=== PATIENT | male | born 1965 | race Caucasian/White ===

== ENCOUNTER 2020-03-22 08:15 | Inpatient (IN) ==
[2020-03-22] MEDS ORDERED: Aspirin 81 MG TAB.CHEW PO ONE (08:19)
[2020-03-22] MEDS ORDERED: Nitroglycerin 0.4 MG TAB.SUBL SL PRN ×2 (08:19→16:12)
[2020-03-22] MEDS ORDERED: Isovue-370 500 ML BOTTLE IVP ONE (08:20)
[2020-03-22 08:35] LABS: Basophils # 0.1 K/mcL (0.0-0.2); Basophils % 0.4 %; Eosinophils # 0.1 K/mcL (0.0-0.6); Eosinophils % 0.7 %; Hematocrit 35.3 % (37.5-50.1); Hemoglobin 10.5 g/dL (12.9-16.9); Immature Granulocytes % 1.1 % (0-4); Lymphocytes # 1.7 K/mcL (0.6-4.6); Lymphocytes % 13.6 %; Mean Corpuscular HGB Conc 29.7 g/dL (31.6-35.5); Mean Corpuscular Hemoglobin 26.7 pg (28.0-33.3); Mean Corpuscular Volume 89.8 fL (83.0-100.0); Mean Platelet Volume 9.2 fL (9.4-12.4); Monocytes # 0.4 K/mcL (0.0-1.3); Monocytes % 3.4 %; Neutrophils # 10.1 K/mcL (1.6-8.9); Platelet Count 537 K/mcL (140-400); Red Blood Count 3.93 M/mcL (4.19-5.50); Red Cell Distribution Width 14.6 % (11.5-14.5); Segmented Neutrophils % 80.8 %; White Blood Count 12.5 K/mcL (4.3-11.1)
[2020-03-22 08:40] LABS: Prothrombin Time 11.3 Seconds (9.4-12.1)
[2020-03-22 08:42] LABS: Activated Partial Thrombo Time 35.4 Seconds (26.0-36.0)
[2020-03-22] MEDS ORDERED: 0.9 % Sodium Chloride 1,000 ML IVC ONE (08:54)
[2020-03-22 08:59] LABS: Alanine Aminotransferase 11 Units/L (7-52); Albumin 3.9 g/dL (3.5-5.7); Albumin/Globulin Ratio 1.1 (1.1-2.2); Alkaline Phosphatase 107 Units/L (34-104); Aspartate Amino Transferase 12 Units/L (13-39); BUN/Creatinine Ratio 32 (6-26); Bilirubin,Direct 0.2 mg/dL (0.0-0.2); Bilirubin,Indirect 0.2 mg/dL (0.0-1.0); Bilirubin,Total 0.4 mg/dL (0.3-1.0); Blood Urea Nitrogen 57 mg/dL (6-20); Calcium 8.7 mg/dL (8.6-10.3); Carbon Dioxide 18 mEq/L (23-29); Chloride 102 mEq/L (98-107); Globulin 3.7 g/dL (2.4-3.5); Glucose 330 mg/dL (70-105); Lipase 74 Units/L (11-82); Osmolality,Calculated 307 (280-300); Potassium 4.8 mEq/L (3.5-5.1); Sodium 134 mEq/L (136-145); Total Protein 7.6 g/dL (6.4-8.9); Troponin I < 0.03 ng/mL (< 0.04); eGFR For African Americans 49 (> 60); eGFR For Non-African Americans 40 (> 60)
[2020-03-22] MEDS ORDERED: *HR* FentaNYL (PF) 100 MCG/2 ML VIAL IVP ONE (09:20)
[2020-03-22] MEDS ORDERED: Pantoprazole 40 MG VIAL IVP ONE (10:04)
[2020-03-22] MEDS ORDERED: MetroNIDAZOLE 500 MG/100 ML 500 MG/100 ML BAG IVPB ONE (10:04)
[2020-03-22] MEDS ORDERED: levoFLOXacin 750 MG/150 ML 750 MG/150 ML BAG IVPB ONE (10:05)
[2020-03-22 11:03] LABS: Bilirubin,Urine Negative (Negative); Blood,Urine Negative (Negative); Clarity,Urine Clear (Clear); Color,Urine Yellow (Yellow); Glucose,Urine (UA) Normal (Normal); Ketones,Urine Negative (Negative); Leukocyte Esterase,Urine Negative (Negative); Nitrite,Urine Negative (Negative); Protein,Urine Trace mg/dL (Neg-Trace); Specific Gravity,Urine 1.022 (1.010-1.025); Urobilinogen,Urine Normal (Normal)
[2020-03-22] MEDS ORDERED: Ondansetron 4 MG/2 ML VIAL IVP PRN ×2 (11:48→16:12)
[2020-03-22] MEDS ORDERED: *HR* Propofol 200 MG/20 ML VIAL IVP ONE (11:55)
[2020-03-22] MEDS ORDERED: *HR* Rocuronium Bromide 50 MG/5 ML VIAL ONE (11:56)
[2020-03-22] MEDS ORDERED: Dexamethasone 4 MG/ML VIAL ONE (11:56)
[2020-03-22] MEDS ORDERED: *HR* Midazolam HCl 2 MG/2 ML VIAL ONE (11:56)
[2020-03-22] MEDS ORDERED: Lidocaine -MPF 2% 2 ML VIAL ONE (11:56)
[2020-03-22] MEDS ORDERED: *HR* FentaNYL (PF) 100 MCG/2 ML VIAL ONE (11:56)
[2020-03-22] MEDS ORDERED: *HR* Succinylcholine 200 MG/10 ML VIAL IVP ONE (11:56)
[2020-03-22] MEDS ORDERED: Ondansetron 4 MG/2 ML VIAL ONE (11:56)
[2020-03-22] MEDS ORDERED: Ringers Solution, Lactated 1,000 ML IVC SCH (12:00)
[2020-03-22] MEDS ORDERED: Acetaminophen IV 1,000 MG/100 ML INFUS..BTL ONE (12:20)
[2020-03-22] MEDS ORDERED: Famotidine 20 MG/2 ML VIAL ONE (12:20)
[2020-03-22] MEDS ORDERED: *HR* PHENYLEPHRINE 1,000 MCG/10 ML SYRINGE IVP ONE (13:02)
[2020-03-22] MEDS ORDERED: *HR* HYDROMORPHONE 2 MG/ML VIAL ONE (13:24)
[2020-03-22] MEDS ORDERED: Fluconazole 200 MG/100 ML 200 MG/100 ML BAG IVPB SCH (14:45)
[2020-03-22] MEDS ORDERED: *HR* Dextrose 50 % in Water (Syg) 50 ML SYRINGE IVP PRN ×2 (15:59→16:12)
[2020-03-22] MEDS ORDERED: D5% in Water 1,000 ML IVC PRN ×2 (15:59→16:12)
[2020-03-22] MEDS ORDERED: Dextrose Gel 15 GM/37.5 ML TUBE PO PRN ×4 (15:59→16:12)
[2020-03-22] MEDS ORDERED: MetroNIDAZOLE 500 MG/100 ML 500 MG/100 ML BAG IVPB SCH (16:00)
[2020-03-22] MEDS: Pantoprazole 40 MG VIAL IVP SCH (16:52)
[2020-03-22] MEDS: MetroNIDAZOLE 500 MG/100 ML 500 MG/100 ML BAG IVPB SCH ×2 (16:53→22:53)
[2020-03-22] MEDS: Fluconazole 200 MG/100 ML 200 MG/100 ML BAG IVPB SCH (16:53)
[2020-03-22] MEDS: Ringers Solution, Lactated 1,000 ML IVC SCH (16:54)
[2020-03-22] MEDS: Insulin LISPRO 300 UNITS/3 ML VIAL SQ SCH ×2 (17:19→23:08)
[2020-03-22] MEDS ORDERED: Pantoprazole 40 MG VIAL IVP SCH (18:00)
[2020-03-22] MEDS ORDERED: Insulin LISPRO 300 UNITS/3 ML VIAL SQ SCH (18:00)
[2020-03-22 20:02] LABS: Hematocrit 31.4 % (37.5-50.1); Hemoglobin 9.4 g/dL (12.9-16.9)
[2020-03-22] MEDS: *HR* Heparin 5,000 UNIT/ML VIAL SQ SCH (22:53)
[2020-03-23] MEDS ORDERED: MetroNIDAZOLE 500 MG/100 ML 500 MG/100 ML BAG IVPB SCH
[2020-03-23 04:56] LABS: Hematocrit 31.2 % (37.5-50.1); Hemoglobin 9.2 g/dL (12.9-16.9); Mean Corpuscular HGB Conc 29.5 g/dL (31.6-35.5); Mean Corpuscular Hemoglobin 26.5 pg (28.0-33.3); Mean Corpuscular Volume 89.9 fL (83.0-100.0); Mean Platelet Volume 9.4 fL (9.4-12.4); Platelet Count 452 K/mcL (140-400); Red Blood Count 3.47 M/mcL (4.19-5.50); Red Cell Distribution Width 14.9 % (11.5-14.5); White Blood Count 14.8 K/mcL (4.3-11.1)
[2020-03-23 05:15] LABS: Calcium 8.3 mg/dL (8.6-10.3); Potassium 5.8 mEq/L (3.5-5.1)
[2020-03-23] MEDS: Ringers Solution, Lactated 1,000 ML IVC SCH (05:26)
[2020-03-23] MEDS: *HR* Heparin 5,000 UNIT/ML VIAL SQ SCH ×3 (05:27→22:35)
[2020-03-23] MEDS: Pantoprazole 40 MG VIAL IVP SCH ×2 (05:27→17:46)
[2020-03-23] MEDS: Insulin LISPRO 300 UNITS/3 ML VIAL SQ SCH ×4 (05:29→23:53)
[2020-03-23 05:38] LABS: Lymphocytes # 0.3 K/mcL (0.6-4.6); Monocytes # 0.6 K/mcL (0.0-1.3); Neutrophils # 13.9 K/mcL (1.6-8.9); Platelet Estimate Increased (Normal)
[2020-03-23 05:39] LABS: Toxic Granulation Present (Not Present)
[2020-03-23] MEDS: MetroNIDAZOLE 500 MG/100 ML 500 MG/100 ML BAG IVPB SCH ×3 (07:56→22:35)
[2020-03-23] MEDS: Fluconazole 200 MG/100 ML 200 MG/100 ML BAG IVPB SCH (07:57)
[2020-03-23] MEDS: levoFLOXacin 750 MG/150 ML 750 MG/150 ML BAG IVPB SCH (07:58)
[2020-03-23] MEDS ORDERED: levoFLOXacin 750 MG/150 ML 750 MG/150 ML BAG IVPB SCH ×2 (09:00)
[2020-03-23] MEDS ORDERED: Fluconazole 200 MG/100 ML 200 MG/100 ML BAG IVPB SCH (09:00)
[2020-03-23] MEDS ORDERED: Insulin LISPRO 300 UNITS/3 ML VIAL SQ ONE (09:02)
[2020-03-23] MEDS ORDERED: Albuterol 2.5 MG/3 ML NEBULIZER IH ONE (09:02)
[2020-03-23] MEDS ORDERED: 0.9 % Sodium Chloride 1,000 ML IVC SCH (11:30)
[2020-03-24] MEDS: Insulin LISPRO 300 UNITS/3 ML VIAL SQ SCH ×3 (06:01→18:20)
[2020-03-24] MEDS: Pantoprazole 40 MG VIAL IVP SCH ×2 (06:01→18:14)
[2020-03-24] MEDS: *HR* Heparin 5,000 UNIT/ML VIAL SQ SCH ×3 (06:01→21:40)
[2020-03-24 06:57] LABS: Basophils % 0.3 %; Eosinophils % 0.1 %; Hematocrit 29.6 % (37.5-50.1); Hemoglobin 8.9 g/dL (12.9-16.9); Immature Granulocytes % 1.6 % (0-4); Lymphocytes # 0.8 K/mcL (0.6-4.6); Mean Corpuscular HGB Conc 30.1 g/dL (31.6-35.5); Mean Corpuscular Hemoglobin 26.5 pg (28.0-33.3); Mean Corpuscular Volume 88.1 fL (83.0-100.0); Mean Platelet Volume 9.2 fL (9.4-12.4); Monocytes # 0.7 K/mcL (0.0-1.3); Monocytes % 4.4 %; Platelet Count 435 K/mcL (140-400); Red Blood Count 3.36 M/mcL (4.19-5.50); Red Cell Distribution Width 15.2 % (11.5-14.5); Segmented Neutrophils % 88.6 %; White Blood Count 15.8 K/mcL (4.3-11.1)
[2020-03-24 07:09] LABS: BUN/Creatinine Ratio 24 (6-26); Blood Urea Nitrogen 36 mg/dL (6-20); Calcium 8.9 mg/dL (8.6-10.3); Carbon Dioxide 22 mEq/L (23-29); Chloride 112 mEq/L (98-107); Glucose 250 mg/dL (70-105); Magnesium 1.9 mg/dL (1.6-2.6); Osmolality,Calculated 309 (280-300); Phosphorous 2.2 mg/dL (2.7-4.5); Potassium 5.2 mEq/L (3.5-5.1); Sodium 141 mEq/L (136-145); eGFR For African Americans > 60 (> 60); eGFR For Non-African Americans 50 (> 60)
[2020-03-24] MEDS: MetroNIDAZOLE 500 MG/100 ML 500 MG/100 ML BAG IVPB SCH ×2 (10:27→18:14)
[2020-03-24] MEDS: Fluconazole 200 MG/100 ML 200 MG/100 ML BAG IVPB SCH (10:28)
[2020-03-24] MEDS: levoFLOXacin 750 MG/150 ML 750 MG/150 ML BAG IVPB SCH (10:29)
[2020-03-24] MEDS ORDERED: Insulin DETEMIR 100 UNIT/ML X5UNITS SQ SCH (21:00)
[2020-03-25] MEDS: Insulin LISPRO 300 UNITS/3 ML VIAL SQ SCH ×7 (01:00→23:55)
[2020-03-25] MEDS: MetroNIDAZOLE 500 MG/100 ML 500 MG/100 ML BAG IVPB SCH ×4 (01:01→23:54)
[2020-03-25] MEDS ORDERED: Chloraseptic Spray 177 ML BOTTLE MM PRN (01:43)
[2020-03-25 02:36] LABS: Basophils # 0.1 K/mcL (0.0-0.2); Basophils % 0.4 %; Eosinophils # 0.2 K/mcL (0.0-0.6); Eosinophils % 1.1 %; Hematocrit 29.2 % (37.5-50.1); Hemoglobin 8.7 g/dL (12.9-16.9); Immature Granulocytes % 2.4 % (0-4); Lymphocytes # 1.3 K/mcL (0.6-4.6); Lymphocytes % 8.1 %; Mean Corpuscular HGB Conc 29.8 g/dL (31.6-35.5); Mean Corpuscular Hemoglobin 26.6 pg (28.0-33.3); Mean Corpuscular Volume 89.3 fL (83.0-100.0); Mean Platelet Volume 9.9 fL (9.4-12.4); Monocytes # 0.7 K/mcL (0.0-1.3); Monocytes % 4.3 %; Neutrophils # 13.3 K/mcL (1.6-8.9); Nucleated Red Blood Cells 0.1 /100 WBC (0); Platelet Count 422 K/mcL (140-400); Red Blood Count 3.27 M/mcL (4.19-5.50); Segmented Neutrophils % 83.7 %; White Blood Count 15.9 K/mcL (4.3-11.1)
[2020-03-25 02:40] LABS: BUN/Creatinine Ratio 26 (6-26); Blood Urea Nitrogen 37 mg/dL (6-20); Calcium 8.7 mg/dL (8.6-10.3); Carbon Dioxide 21 mEq/L (23-29); Chloride 113 mEq/L (98-107); Glucose 266 mg/dL (70-105); Magnesium 1.9 mg/dL (1.6-2.6); Osmolality,Calculated 318 (280-300); Phosphorous 2.8 mg/dL (2.7-4.5); Potassium 4.9 mEq/L (3.5-5.1); Sodium 145 mEq/L (136-145); eGFR For African Americans > 60 (> 60); eGFR For Non-African Americans 52 (> 60)
[2020-03-25] MEDS: *HR* Heparin 5,000 UNIT/ML VIAL SQ SCH ×3 (05:42→21:34)
[2020-03-25] MEDS: Pantoprazole 40 MG VIAL IVP SCH ×2 (05:42→18:24)
[2020-03-25] MEDS ORDERED: Insulin DETEMIR 100 UNIT/ML X5UNITS SQ SCH ×2 (09:00→21:00)
[2020-03-25] MEDS: levoFLOXacin 750 MG/150 ML 750 MG/150 ML BAG IVPB SCH (10:51)
[2020-03-25] MEDS: Fluconazole 200 MG/100 ML 200 MG/100 ML BAG IVPB SCH (10:54)
[2020-03-25] MEDS: Fluconazole 400 MG/200 ML 400 MG/200 ML BAG IVPB SCH (11:23)
[2020-03-25] MEDS ORDERED: Vancomycin 2,000 MG/520 ML IV.SOLN IVPB ONE (13:14)
[2020-03-25] MEDS: Acetaminophen IV 1,000 MG/100 ML INFUS..BTL IVPB SCH ×3 (14:37→23:55)
[2020-03-25 18:29] LABS: Bilirubin,Urine Negative (Negative); Clarity,Urine Clear (Clear); Color,Urine Yellow (Yellow); Ketones,Urine Negative (Negative)
[2020-03-25 18:30] LABS: Blood,Urine Negative (Negative); Glucose,Urine (UA) >=1000 mg/dL (Normal); Leukocyte Esterase,Urine Negative (Negative); Nitrite,Urine Negative (Negative); Protein,Urine Negative (Neg-Trace); Urobilinogen,Urine Normal (Normal)
[2020-03-25] MEDS: Insulin DETEMIR 100 UNIT/ML X5UNITS SQ SCH (21:34)
[2020-03-26] MEDS: Vancomycin 2,000 MG/520 ML IV.SOLN IVPB SCH (03:33)
[2020-03-26] MEDS: Acetaminophen IV 1,000 MG/100 ML INFUS..BTL IVPB SCH ×4 (05:59→23:16)
[2020-03-26] MEDS: Pantoprazole 40 MG VIAL IVP SCH ×2 (05:59→17:22)
[2020-03-26] MEDS: *HR* Heparin 5,000 UNIT/ML VIAL SQ SCH ×3 (05:59→21:25)
[2020-03-26] MEDS: Insulin LISPRO 300 UNITS/3 ML VIAL SQ SCH ×6 (06:00→16:54)
[2020-03-26 06:47] LABS: Hematocrit 28.5 % (37.5-50.1); Hemoglobin 8.8 g/dL (12.9-16.9); Mean Corpuscular HGB Conc 30.9 g/dL (31.6-35.5); Mean Corpuscular Hemoglobin 26.2 pg (28.0-33.3); Mean Corpuscular Volume 84.8 fL (83.0-100.0); Mean Platelet Volume 9.3 fL (9.4-12.4); Nucleated Red Blood Cells 0.2 /100 WBC (0); Platelet Count 397 K/mcL (140-400); Red Blood Count 3.36 M/mcL (4.19-5.50); Red Cell Distribution Width 15.1 % (11.5-14.5); White Blood Count 11.6 K/mcL (4.3-11.1)
[2020-03-26 07:05] LABS: % Iron Saturation 25 % (20-55); BUN/Creatinine Ratio 27 (6-26); Blood Urea Nitrogen 35 mg/dL (6-20); Calcium 8.2 mg/dL (8.6-10.3); Carbon Dioxide 22 mEq/L (23-29); Chloride 109 mEq/L (98-107); Glucose 244 mg/dL (70-105); Iron 47 mcg/dL (65-175); Magnesium 1.6 mg/dL (1.6-2.6); Osmolality,Calculated 306 (280-300); Phosphorous 3.2 mg/dL (2.7-4.5); Potassium 4.2 mEq/L (3.5-5.1); Sodium 140 mEq/L (136-145); Transferrin 132 mg/dL (203-362); eGFR For African Americans > 60 (> 60); eGFR For Non-African Americans 58 (> 60)
[2020-03-26] MEDS: Fluconazole 400 MG/200 ML 400 MG/200 ML BAG IVPB SCH (08:24)
[2020-03-26] MEDS: MetroNIDAZOLE 500 MG/100 ML 500 MG/100 ML BAG IVPB SCH ×3 (08:25→23:40)
[2020-03-26] MEDS: Insulin DETEMIR 100 UNIT/ML X5UNITS SQ SCH ×2 (08:26→21:25)
[2020-03-26 08:29] LABS: Estimated Average Glucose 183 mg/dl
[2020-03-26 09:10] LABS: Eosinophils # 0.8 K/mcL (0.0-0.6); Lymphocytes # 2.1 K/mcL (0.6-4.6); Monocytes # 0.5 K/mcL (0.0-1.3); Neutrophils # 7.9 K/mcL (1.6-8.9)
[2020-03-26 09:11] LABS: Platelet Estimate Normal (Normal)
[2020-03-26 09:12] LABS: Hypochromasia Present (Not Present)
[2020-03-26] MEDS: levoFLOXacin 750 MG/150 ML 750 MG/150 ML BAG IVPB SCH (09:14)
[2020-03-26] MEDS: Iron Sucrose Complex 400 MG in 0.9 % Sodium Chloride 250 ML IVPB SCH (09:18)
[2020-03-26] MEDS ORDERED: Insulin DETEMIR 100 UNIT/ML X5UNITS SQ ONE (12:41)
[2020-03-27] MEDS: Insulin LISPRO 300 UNITS/3 ML VIAL SQ SCH ×7 (00:41→16:31)
[2020-03-27] MEDS: Vancomycin 2,000 MG/520 ML IV.SOLN IVPB SCH (03:30)
[2020-03-27] MEDS: *HR* Heparin 5,000 UNIT/ML VIAL SQ SCH ×3 (05:56→20:57)
[2020-03-27] MEDS: Acetaminophen IV 1,000 MG/100 ML INFUS..BTL IVPB SCH ×2 (05:56→12:45)
[2020-03-27] MEDS: Pantoprazole 40 MG VIAL IVP SCH (05:57)
[2020-03-27 06:54] LABS: Hematocrit 29.8 % (37.5-50.1); Hemoglobin 8.9 g/dL (12.9-16.9); Mean Corpuscular HGB Conc 29.9 g/dL (31.6-35.5); Mean Corpuscular Volume 87.1 fL (83.0-100.0); Mean Platelet Volume 9.4 fL (9.4-12.4); Nucleated Red Blood Cells 0.2 /100 WBC (0); Platelet Count 371 K/mcL (140-400); Red Blood Count 3.42 M/mcL (4.19-5.50); Red Cell Distribution Width 14.9 % (11.5-14.5); White Blood Count 12.3 K/mcL (4.3-11.1)
[2020-03-27 07:10] LABS: BUN/Creatinine Ratio 24 (6-26); Blood Urea Nitrogen 26 mg/dL (6-20); Calcium 8.3 mg/dL (8.6-10.3); Carbon Dioxide 21 mEq/L (23-29); Chloride 109 mEq/L (98-107); Glucose 225 mg/dL (70-105); Magnesium 1.5 mg/dL (1.6-2.6); Osmolality,Calculated 298 (280-300); Phosphorous 3.2 mg/dL (2.7-4.5); Potassium 4.5 mEq/L (3.5-5.1); Sodium 138 mEq/L (136-145); eGFR For African Americans > 60 (> 60); eGFR For Non-African Americans > 60 (> 60)
[2020-03-27 07:27] LABS: Eosinophils # 0.5 K/mcL (0.0-0.6); Neutrophils # 7.9 K/mcL (1.6-8.9)
[2020-03-27 07:28] LABS: Platelet Estimate Normal (Normal)
[2020-03-27] MEDS: MetroNIDAZOLE 500 MG/100 ML 500 MG/100 ML BAG IVPB SCH (08:02)
[2020-03-27] MEDS: levoFLOXacin 750 MG/150 ML 750 MG/150 ML BAG IVPB SCH (08:02)
[2020-03-27] MEDS: Fluconazole 400 MG/200 ML 400 MG/200 ML BAG IVPB SCH (08:03)
[2020-03-27] MEDS: lisinopriL 20 MG TABLET PO SCH ×2 (08:04→20:57)
[2020-03-27] MEDS: hydroCHLOROthiazide 25 MG TABLET PO SCH (08:04)
[2020-03-27] MEDS: Iron Sucrose Complex 400 MG in 0.9 % Sodium Chloride 250 ML IVPB SCH (08:15)
[2020-03-27] MEDS: Insulin DETEMIR 100 UNIT/ML X5UNITS SQ SCH ×2 (08:15→20:58)
[2020-03-27] MEDS: metroNIDAZOLE 500 MG TABLET PO SCH ×2 (16:31→20:57)
[2020-03-27] MEDS ORDERED: Insulin LISPRO 300 UNITS/3 ML VIAL SQ SCH (21:00)
[2020-03-28 03:04] LABS: BUN/Creatinine Ratio 23 (6-26); Blood Urea Nitrogen 25 mg/dL (6-20); Calcium 8.1 mg/dL (8.6-10.3); Carbon Dioxide 21 mEq/L (23-29); Chloride 106 mEq/L (98-107); Glucose 256 mg/dL (70-105); Magnesium 1.6 mg/dL (1.6-2.6); Osmolality,Calculated 293 (280-300); Phosphorous 2.6 mg/dL (2.7-4.5); Potassium 4.3 mEq/L (3.5-5.1); Sodium 135 mEq/L (136-145); Vancomycin,Trough 9 mcg/mL (5-10); eGFR For African Americans > 60 (> 60); eGFR For Non-African Americans > 60 (> 60)
[2020-03-28] MEDS: Vancomycin 2,000 MG/520 ML IV.SOLN IVPB SCH (03:34)
[2020-03-28] MEDS: *HR* Heparin 5,000 UNIT/ML VIAL SQ SCH (05:55)
[2020-03-28 06:05] LABS: Hematocrit 27.7 % (37.5-50.1); Hemoglobin 8.5 g/dL (12.9-16.9); Mean Corpuscular HGB Conc 30.7 g/dL (31.6-35.5); Mean Corpuscular Hemoglobin 26.8 pg (28.0-33.3); Mean Corpuscular Volume 87.4 fL (83.0-100.0); Mean Platelet Volume 9.6 fL (9.4-12.4); Platelet Count 347 K/mcL (140-400); Red Blood Count 3.17 M/mcL (4.19-5.50); Red Cell Distribution Width 14.9 % (11.5-14.5); White Blood Count 13.5 K/mcL (4.3-11.1)
[2020-03-28 06:50] LABS: Eosinophils # 1.1 K/mcL (0.0-0.6); Lymphocytes # 2.2 K/mcL (0.6-4.6); Neutrophils # 9.7 K/mcL (1.6-8.9); Platelet Estimate Normal (Normal)
[2020-03-28 06:56] VITALS: BP 156/74
[2020-03-28] MEDS ORDERED: 0.9 % Sodium Chloride 10 ML PF VIAL TP ONE (07:00)
[2020-03-28] MEDS ORDERED: Penicillin test 1000 units/0.1 ml ID ONE ×2 (07:00)
[2020-03-28] MEDS ORDERED: EPINEPHrine 1 MG/ML VIAL IM PRN (07:00)
[2020-03-28] MEDS ORDERED: EPINEPHrine 1 MG/ML VIAL IV PRN (07:00)
[2020-03-28] MEDS ORDERED: Famotidine 20 MG/2 ML VIAL IVP PRN (07:00)
[2020-03-28] MEDS ORDERED: methylPREDNISolone 125 MG/2 ML VIAL IVP PRN (07:00)
[2020-03-28] MEDS ORDERED: Amoxicillin 500 MG CAPSULE PO ONE (07:00)
[2020-03-28] MEDS ORDERED: Amoxicillin Susp 250 MG/5 ML UDC PO ONE (07:00)
[2020-03-28] MEDS ORDERED: Penicillin test 1000 units/0.1 ml TP ONE ×2 (07:00)
[2020-03-28] MEDS: Insulin DETEMIR 100 UNIT/ML X5UNITS SQ SCH (07:32)
[2020-03-28] MEDS: metroNIDAZOLE 500 MG TABLET PO SCH (07:32)
[2020-03-28] MEDS: levoFLOXacin 750 MG/150 ML 750 MG/150 ML BAG IVPB SCH (07:33)
[2020-03-28] MEDS: Fluconazole 400 MG/200 ML 400 MG/200 ML BAG IVPB SCH (07:33)
[2020-03-28] MEDS: lisinopriL 20 MG TABLET PO SCH (07:33)
[2020-03-28] MEDS: hydroCHLOROthiazide 25 MG TABLET PO SCH (07:33)
[2020-03-28] MEDS: Insulin LISPRO 300 UNITS/3 ML VIAL SQ SCH ×2 (07:51→11:24)
[2020-03-28] MEDS ORDERED: Vancomycin 1,500 MG/265 ML IV.SOLN IVPB SCH (15:00)
== END 2020-03-28 14:03 | disposition home health service (06) | DRG 853 ==
LOC: EMEROOARM 08:15 → 3ANU 08:15 → SUATTDRO 12:42
PROVIDERS: ADMIT Internal Medicine; ATTEND Internal Medicine